=== PATIENT | female | born 1990 | race Two or more races ===

== ENCOUNTER 2023-05-01 14:17 | Emergency (ER) | payer MEDICAID ==
[~2023-05-01] VITALS: Ht 154.9 cm; Wt 79.9 kg
[~2023-05-01 14:17] MED LIST: PREN-234
[2023-05-01 14:22] VITALS: BP 117/62; PULSE 83; RESP 18; TEMP 98.4; O2SAT 98
[2023-05-01] MEDS ORDERED: KETOROLAC 60 MG/2 ML VIAL IM ONE (17:50)
[2023-05-01] MEDS ORDERED: OMEP40EC23 PO (18:11)
[2023-05-01] MEDS ORDERED: IBUP-2213 PO (18:11)
== END 2023-05-01 18:35 | disposition home or self-care (01) ==
LOC: MED 14:17
DX: R10.13 Epigastric pain (principal); Z79.899 Other long term (current) drug therapy
CPT/HCPCS: 81002; 81025; 96372; 99283; J1885